=== PATIENT | female | born 1955 | race Caucasian/White ===

== ENCOUNTER 2016-12-03 15:51 | Emergency (ER) | payer MEDICARE ==
--- NOTE | ~2016-12-03 | CR172 ---
[facility] A Service of [facility] & [facility] RADIOLOGY TEXT RESULTS PATIENT: WENDI MCDANIEL LOCATION: [facility] : 55 UNIT #: [id number] AGE: [address]: Murali Mccain MD SEX: F ORDER DR: [id number] [facility] [address] [place], [place] [address] [id number] E MR#: [id number] Acc #: [id number] NAME: WENDI MCDANIEL : 1955 SEX: F STUDY DATE/TIME: 12/03/2016 16:53 UNIT: [facility] ROOM: STUDY DESCRIPTION: CR Knee 3 Views Lt Attending Physician: Murali Mccain M.D. Ordering Physician: Murali Mccain M.D. Primary Care Physician: Helen Macdonald MEDICAL IMAGING REPORT This report is preliminary unless electronic signature is present EXAM Left knee, 3 views HISTORY Knee pain and swelling after fall yesterday. FINDINGS 3 views of the left knee demonstrate moderate degenerative changes in the medial and patellofemoral compartments. No fracture, or effusion. Generalized demineralization. Surgical clips about the knee and in the lower leg. Additional degenerative joint space narrowing in the patellofemoral compartment. IMPRESSION 1. No fracture or effusion. 2. Moderate degenerative changes in the knee. Demineralization. Dictated by... Medardo Hayes M.D. THIS IS AN ELECTRONICALLY VERIFIED REPORT Medardo Hayes M.D. at 12/03/2016 10:50 PM DFL/psc TD: 12/03/2016 20:03 JOB #: [id number] MEDICAL IMAGING REPORT Page 1 of 1 COPY
[~2016-12-03 15:51] MED LIST: ALBUTEROL17 GM INH; AMITRIPTYLINE H25 MG PO; AMITRIPTYLINE100 MG PO; ASPIRIN81 M2 PO; ASPIRIN81 MG PO; ATRAC-TAIN142 GM EXT; AUGMENTIN875 M1 PO; CITALOPRAM HBR40 M1 PO; CLOPIDOGREL75 MG PO; COMBIVENT U/D3 ML INH; COREG PO; CRESTOR PO; CYMBALTA PO; DAKIN'S MODIF1000 ML EXT; DULOXETINE HCL60 MG PO; GABAPENTIN600 MG PO; HUMALOG100 U/ML SUBQ; HYDRALAZINE HCL50 MG PO; LANTUS100 U/ML SUBQ; LANTUS100 UNITS/ SUBQ; LASIX PO; LIPITOR80 MG PO; LISINOPRIL PO; LISINOPRIL5 MG PO; LOPRESSOR PO; METFORMIN HCL500 M1 PO; METFORMIN PO; MIRALAX17 GM PO; NEURONTIN PO; NORVASC PO; NOVOLIN N100 UNIT/1 SUBQ; NOVOLOG100 U/M2 SUBQ; NOVOLOG100 UNITS/ SUBQ; PERCOCET 5-3251 TAB PO; PLAVIX PO; PROTONIX PO; ROXICODONE5 MG PO; SYMBICORT INH; SYMBICORT80 INH; TOPROL XL PO; ZESTRIL40 MG PO
== END 2016-12-03 18:25 | disposition home or self-care (01) ==
LOC: CED 15:51
DX: S83.92XA Sprain of unspecified site of left knee, initial encounter (principal); E11.9 Type 2 diabetes mellitus without complications; I11.0 Hypertensive heart disease with heart failure; I50.9 Heart failure, unspecified; J44.9 Chronic obstructive pulmonary disease, unspecified; X50.1XXA Overexertion from prolonged static or awkward postures, initial encounter; Y92.009 Unspecified place in unspecified non-institutional (private) residence as the place of occurrence of the external cause; Z88.8 Allergy status to other drugs, medicaments and biological substances
CPT/HCPCS: 73562; 99283